=== PATIENT | male | born 1945 ===

== ENCOUNTER → 2016-05-16 | Outpatient (CLI) | payer MEDICARE, MEDICAID ==
[2016-05-16 10:58] LABS: INR - (THERAPEUTIC) 2.3 (0.9-1.1); PROTIME 26.1 SECONDS (9.6-11.1)
== END | disposition disaster alternative care site (69) ==
LOC: LGSRV 10:40
PROVIDERS: Family Medicine
DX: I48.2 Chronic atrial fibrillation (principal)

== ENCOUNTER → 2016-10-10 | Outpatient (CLI) | payer MEDICARE, MEDICAID ==
[2016-10-10 09:04] LABS: MCV 97.2 fl (83.0-98.0); MPV 9.1 fl (9.4-12.4); RDW-CV 15.4 % (11.9-14.6); WBC 4.6 K/uL (4.0-11.0)
[2016-10-10 09:17] LABS: ANION GAP 14.5 (10.0-19.0); CALCIUM 9.5 mg/dL (8.5-10.5); POTASSIUM 4.5 mMol/L (3.7-5.1)
[2016-10-10 09:20] LABS: CREATININE 7.2 mg/dL (0.6-1.3)
[2016-10-10 09:21] LABS: INR - (THERAPEUTIC) 4.6 (0.92-1.07)
[2016-10-10 09:48] LABS: RBC 1.76 M/uL (3.50-5.50)
[2016-10-10 09:50] LABS: HEMOGLOBIN 5.3 g/dL (11.0-16.0); MCH 30.1 pg (27.0-34.0)
[2016-10-10 09:51] LABS: HEMATOCRIT 17.1 % (37.0-53.0)
== END ==
LOC: LGSRV 08:58
PROVIDERS: Family Medicine
DX: N18.4 Chronic kidney disease, stage 4 (severe) (principal); I48.2 Chronic atrial fibrillation; I89.0 Lymphedema, not elsewhere classified; D50.9 Iron deficiency anemia, unspecified